=== PATIENT | female | born 1975 | race Caucasian/White ===

== ENCOUNTER 2017-11-14 11:11 | Emergency (ER) | payer OTHER ==
[~2017-11-14] VITALS: Ht 149.9 cm; Wt 111.1 kg
[~2017-11-14 11:11] MED LIST: FLEXERIL10 MG PO; LOTREL 10/21 CAPSULE PO; NAPROSYN500 MG PO; PAXIL CR37.5 MG PO; ZYRTEC10 M3 PO
[2017-11-14 12:24] LABS: HEMATOCRIT 41.9 % (36.0-46.0); HEMOGLOBIN 14.1 G/DL (11.9-15.5); MCH 30.3 PG (29.0-34.0); MCHC 33.7 G/DL (30.0-36.0); MCV 90.1 FL (83-99); PLATELET COUNT 358 K/uL (156-360); RBC DIS.WIDTH-CV 13.2 % (11.8-14.6); RBC DIS.WIDTH-SD 43.2 % (39-53); RED BLOOD COUNT 4.65 M/uL (3.80-5.20); WHITE BLOOD COUNT 6.4 K/uL (4.1-10.2)
[2017-11-14 12:36] LABS: CHLORIDE 103 mEq/L (99-109); SODIUM 138 mEq/L (136-147)
[2017-11-14 12:37] LABS: GLUCOSE 98 mg/dL (70-99)
[2017-11-14 12:41] LABS: GFR ESTIMATE (CALCULATED) > 59 mL/min/
[2017-11-14 12:42] LABS: UREA NITROGEN (BUN) 14 mg/dL (9-23)
[2017-11-14 13:56] LABS: APPEARANCE SL.HAZY ((CLEAR)); BILIRUBIN NEGATIVE; BLOOD NEGATIVE; COLOR YELLOW ((YELLOW)); GLUCOSE (STRIP) NEGATIVE; KETONES 20; LEUKOCYTES NEGATIVE; NITRITE NEGATIVE; PROTEIN (STRIP) NEGATIVE; SPECIFIC GRAVITY 1.014 (1.000-1.030); UROBILINOGEN 0.2 MG/DL (0.2-1.0)
[2017-11-14 14:06] LABS: BACTERIA 1+ /HPF; EPITHELIAL CELLS 2+ /HPF; MUCUS TRACE /LPF; RED BLOOD CELLS 0-5 /HPF (0-5); UCUL ADDED? NO; WHITE BLOOD CELLS 0-5 /HPF (0-5)
[2017-11-14 16:08] VITALS: BP 169/100
== END 2017-11-14 16:10 | disposition home or self-care (01) ==
LOC: EME 11:11
PROVIDERS: Nurse Practitioner Family
DX: G45.9 Transient cerebral ischemic attack, unspecified (principal); I10 Essential (primary) hypertension; F41.9 Anxiety disorder, unspecified; F32.9 Major depressive disorder, single episode, unspecified
CPT/HCPCS: 70450; 71046; 80048; 81003; 85027; 99281; 99284

== ENCOUNTER → 2017-12-25 | Outpatient (CLI) | payer OTHER ==
[2017-12-25 16:51] LABS: CSF PROTEIN 23 mg/dL (15-45)
[2017-12-25 16:56] LABS: GLUCOSE, CSF 70 mg/dL (40-80)
[2017-12-25 17:04] LABS: APPEARANCE CLEAR/COLORLESS; CSF TUBE NUMBER TUBE #4; RED CELL COUNT 4 /MM^3 (0-1)
[2017-12-25 17:05] LABS: WHITE CELL COUNT 1 /MM^3 (0-5)
[2017-12-25 17:11] LABS: CSF EOSINOPHILS 0 % (0-25); MONONUCLEAR WBC'S 100 % (50-90); POLYNUCLEAR WBC'S 0 % (0-3)
[2017-12-30 17:36] LABS: Albumin, Serum 3.9 g/dL (3.5-4.9); IgG Index, CSF 0.57 (<0.66); IgG, CSF 1.3 mg/dL (0.8-7.7); IgG, Serum 737 mg/dL (694-1618); Synthesis Rate IgG, CSF -1.5 mg/24 h (-9.9-3.3)
== END | disposition home or self-care (01) ==
LOC: RAD 14:27
PROVIDERS: Psychiatry & Neurology Clinical Neurophysiology
PROC: 009U3ZZ Drainage of Spinal Canal, Percutaneous Approach (ICD-10-PCS; principal; 2017-12-25)
DX: G37.9 Demyelinating disease of central nervous system, unspecified (principal); B99.9 Unspecified infectious disease
CPT/HCPCS: 62270; 77003; 82945; 83873 90; 83916 90; 84157; 86617 90; 86618 90; 87070; 87205; 89051